=== PATIENT | male | born 1960 | race Caucasian/White ===

== ENCOUNTER → 2024-03-21 06:30 | Day surgery (SDC) | payer BC, SELFPAY | LOC: GI 06:30 | PROVIDERS: ATTENDING PHYSICIAN Internal Medicine Gastroenterology | DX: K20.0 Eosinophilic esophagitis (principal) | CPT/HCPCS: 43239; 88305 ==

== ENCOUNTER 2025-04-18 06:18 | Day surgery (SDC) | payer BC, SELFPAY | END 2025-04-18 09:50 | disposition home or self-care (01) | LOC: GI 06:18 | PROVIDERS: ATTENDING PHYSICIAN Internal Medicine Gastroenterology | DX: K20.0 Eosinophilic esophagitis (principal); K22.89 Other specified disease of esophagus; K44.9 Diaphragmatic hernia without obstruction or gangrene; K31.89 Other diseases of stomach and duodenum | CPT/HCPCS: 43239; 88305; 88342 ==